=== PATIENT | male | born 1965 | race Caucasian/White ===

== ENCOUNTER 2021-08-23 19:34 | Inpatient (IN) | payer OTHER, BC ==
[~2021-08-23 19:34] MED LIST: Iopamidol-370 76% 500 ML 1 ML ONE
[2021-08-23 19:50] LABS: #Basophils 0.1 thou/uL (0.0-0.2); #Eosinphils 0.1 thou/uL (0.0-0.7); #Lymphocytes 1.6 thou/uL (1.20-3.40); #Monocytes 0.7 thou/uL (0.11-0.59); #Neutrophils 8.8 thou/uL (1.40-6.50); %Basophils 0.5 % (0.0-1.0); %Lymphocytes 14.5 % (21.0-51.0); %Neutrophils 77.9 % (42.0-75.0); Hemoglobin 17.2 g/dL (14.0-18.0); Mean Corpuscular HGB CONC 33.4 g/dL (32.0-36.0); Mean Corpuscular Hemoglobin 31.5 pg (27.0-31.0); Mean Corpuscular Volume 94.2 fL (78.0-98.0); Mean Platelet Volume 7.4 fL (7.4-10.4); Platelet Count 243 thou/uL (130-400); RBC Distribution Width 12.2 % (11.5-14.5); Red Blood Cell (RBC) Count 5.45 mill/uL (4.70-6.10); White Blood Cell (WBC) Count 11.3 thou/uL (4.8-10.8)
[2021-08-23] MEDS ORDERED: Ketorolac Tromethamine 30 MG/ML VIAL ONE ×2 (19:51→21:35)
[2021-08-23 20:11] LABS: ALT (SGPT) 30 U/L (8-55); AST (SGOT) 26 U/L (5-34); Albumin 4.7 g/dL (3.5-5.0); Alkaline Phosphatase 75 U/L (40-110); Anion Gap 16 mmol/L (10-20); BUN (Urea Nitrogen) 26 mg/dL (8.4-25.7); Bilirubin, Total 1.2 mg/dL (0.2-1.2); Calc. Creatinine Clearance 0 mL/min (70-130); Calcium 9.9 mg/dL (7.8-10.44); Carbon Dioxide 25 mmol/L (22-29); Chloride 99 mmol/L (98-107); Globulin 2.7 g/dL (2.4-3.5); Glucose 150 mg/dL (70-105); Potassium 3.8 mmol/L (3.5-5.1); Protein, Total 7.4 g/dL (6.0-8.3); Sodium 136 mmol/L (136-145)
[2021-08-23] MEDS ORDERED: Acetaminophen 325 MG TAB PO PRN (23:00)
[2021-08-23] MEDS ORDERED: Acetaminophen/Codeine 30-300mg Tablet PO PRN (23:00)
[2021-08-23] MEDS ORDERED: HYDROcodone/Acetaminophen 7.5/325 mg Tablet PO PRN (23:00)
[2021-08-23] MEDS ORDERED: Morphine 2 MG/ML VIAL SLOW IVP PRN (23:00)
[2021-08-23] MEDS ORDERED: traMADol HCl 50 MG TAB PO PRN ×2 (23:00→23:18)
[2021-08-23 23:13] LABS: #Eosinphils 0.1 thou/uL (0.0-0.7); #Lymphocytes 1.2 thou/uL (1.20-3.40); #Monocytes 0.8 thou/uL (0.11-0.59); #Neutrophils 12.8 thou/uL (1.40-6.50); %Basophils 0.3 % (0.0-1.0); %Eosinophils 0.4 % (0.0-10.0); %Lymphocytes 8.1 % (21.0-51.0); %Monocytes 5.1 % (0.0-10.0); %Neutrophils 86.2 % (42.0-75.0); Hemoglobin 16.9 g/dL (14.0-18.0); Mean Corpuscular HGB CONC 33.8 g/dL (32.0-36.0); Mean Corpuscular Hemoglobin 31.7 pg (27.0-31.0); Mean Corpuscular Volume 93.8 fL (78.0-98.0); Mean Platelet Volume 7.2 fL (7.4-10.4); Platelet Count 209 thou/uL (130-400); RBC Distribution Width 12.2 % (11.5-14.5); Red Blood Cell (RBC) Count 5.35 mill/uL (4.70-6.10); White Blood Cell (WBC) Count 14.8 thou/uL (4.8-10.8)
[2021-08-23] MEDS ORDERED: Dextrose 5% in Water 1,000 ML IV PRN (23:15)
[2021-08-23] MEDS ORDERED: Dextrose 50% Abboject 50 ML SYRINGE SLOW IVP PRN (23:15)
[2021-08-23 23:26] LABS: Prothrombin Time 13.3 sec (12.0-14.7)
[2021-08-23 23:27] LABS: PTT 26.4 sec (22.9-36.1)
[2021-08-23 23:30] LABS: Anion Gap 17 mmol/L (10-20); BUN (Urea Nitrogen) 26 mg/dL (8.4-25.7); Calc. Creatinine Clearance 0 mL/min (70-130); Calcium 9.5 mg/dL (7.8-10.44); Carbon Dioxide 23 mmol/L (22-29); Chloride 100 mmol/L (98-107); Glucose 141 mg/dL (70-105); Potassium 3.8 mmol/L (3.5-5.1); Sodium 136 mmol/L (136-145)
[2021-08-23] MEDS ORDERED: Acetaminophen 325 MG TAB PO SCH (23:30)
[2021-08-24 00:41] VITALS: BMI 35.1
[2021-08-24] MEDS ORDERED: Dextrose 5% in Water 1,000 ML IV PRN (00:45)
[2021-08-24] MEDS ORDERED: Dextrose 50% Abboject 50 ML SYRINGE SLOW IVP PRN (00:45)
[2021-08-24] MEDS ORDERED: HumaLOG 300 UNITS/3 ML VIAL SC PRN (00:45)
[2021-08-24] MEDS: traMADol HCl 50 MG TAB PO SCH ×5 (01:02→23:56)
[2021-08-24] MEDS: Ibuprofen 200 MG TAB PO SCH ×3 (01:02→11:49)
[2021-08-24] MEDS: Morphine 2 MG/ML VIAL SLOW IVP PRN ×4 (01:03→19:18)
[2021-08-24] MEDS: Acetaminophen 500 MG TAB PO SCH ×5 (01:03→23:55)
[2021-08-24] MEDS: Lactated Ringer's 1,000 ML IV SCH ×2 (01:12→10:04)
[2021-08-24 05:39] LABS: #Lymphocytes 1.4 thou/uL (1.20-3.40); #Monocytes 0.7 thou/uL (0.11-0.59); #Neutrophils 7.7 thou/uL (1.40-6.50); %Basophils 0.4 % (0.0-1.0); %Eosinophils 0.2 % (0.0-10.0); %Monocytes 7.2 % (0.0-10.0); %Neutrophils 78.2 % (42.0-75.0); Hemoglobin 15.7 g/dL (14.0-18.0); Mean Corpuscular HGB CONC 34.2 g/dL (32.0-36.0); Mean Corpuscular Hemoglobin 32.2 pg (27.0-31.0); Mean Platelet Volume 7.5 fL (7.4-10.4); Platelet Count 196 thou/uL (130-400); RBC Distribution Width 12.1 % (11.5-14.5); Red Blood Cell (RBC) Count 4.89 mill/uL (4.70-6.10); White Blood Cell (WBC) Count 9.8 thou/uL (4.8-10.8)
[2021-08-24 06:05] LABS: Anion Gap 14 mmol/L (10-20); BUN (Urea Nitrogen) 26 mg/dL (8.4-25.7); Calc. Creatinine Clearance 175 mL/min (70-130); Calcium 9.6 mg/dL (7.8-10.44); Carbon Dioxide 28 mmol/L (22-29); Chloride 100 mmol/L (98-107); Glucose 113 mg/dL (70-105); Magnesium 2.1 mg/dL (1.6-2.6); Phosphorus 4.4 mg/dL (2.3-4.7); Potassium 3.8 mmol/L (3.5-5.1); Sodium 138 mmol/L (136-145)
[2021-08-24] MEDS: Famotidine 20 MG TAB PO SCH ×2 (07:45→19:18)
[2021-08-24] MEDS ORDERED: Thrombin 5000 UNITS/5 ML VIAL ONE (11:13)
[2021-08-24] MEDS ORDERED: fentaNYL Citrate/PF 100 MCG/2 ML SYRINGE ONE (11:20)
[2021-08-24] MEDS ORDERED: Midazolam HCl 2 mg/2 ml Vial ONE (11:20)
[2021-08-24] MEDS ORDERED: ceFAZolin (BATCH) 2 GM/100 ML BAG ONE ×2 (11:24)
[2021-08-24] MEDS ORDERED: Glycopyrrolate 0.2 MG/ML 5 ML SYRINGE ONE (11:32)
[2021-08-24] MEDS ORDERED: PHENYLEPHRINE-NS 100 MCG/ML 10 ML SYRINGE ONE (11:32)
[2021-08-24] MEDS ORDERED: diphenhydrAMINE 50 MG/ML VIAL ONE (11:32)
[2021-08-24] MEDS ORDERED: Rocuronium Bromide 10 MG/ML (10ML VIAL) ONE (11:32)
[2021-08-24] MEDS ORDERED: Lidocaine 1% PF 5 ML VIAL ONE (11:32)
[2021-08-24] MEDS ORDERED: Ondansetron PF 4 MG/2 ML Vial ONE (11:32)
[2021-08-24] MEDS ORDERED: Ketorolac Tromethamine 30 MG/ML VIAL ONE (11:32)
[2021-08-24] MEDS ORDERED: PROPOFOL 200 MG/20 ML VIAL ONE (11:32)
[2021-08-24] MEDS ORDERED: Rocuronium Bromide 50 MG/5 ML VIAL ONE ×2 (12:44→13:56)
[2021-08-24] MEDS ORDERED: HYDROmorphone 2 MG/ML VIAL ONE (14:46)
[2021-08-24] MEDS ORDERED: HYDROcodone/Acetaminophen 7.5/325 mg Tablet PO PRN (15:26)
[2021-08-24] MEDS ORDERED: Promethazine HCl 25 MG/ML VIAL IVPB PRN (15:31)
[2021-08-24] MEDS ORDERED: Ondansetron HCl/PF 4 MG/2 ML Vial IVP PRN (15:31)
[2021-08-24] MEDS ORDERED: Promethazine HCl 25 MG/ML VIAL IM PRN (15:31)
[2021-08-24] MEDS ORDERED: HYDROmorphone 2 MG/ML VIAL SLOW IVP PRN (15:31)
[2021-08-24 15:50] LABS: SARS-CoV-2 PCR by NAA Not Detected (NotDetected)
[2021-08-24] MEDS ORDERED: HYDROmorphone 0.5 MG/0.5 ML SYRINGE ONE ×2 (16:00→16:17)
[2021-08-24] MEDS: tiZANidine HCl 4 MG TAB PO PRN (17:11)
[2021-08-24] MEDS: ceFAZolin (BATCH) 2 GM in Premix Bag 1 BAG IVPB SCH (19:18)
[2021-08-24] MEDS: Acetaminophen/Codeine 30-300mg Tablet PO PRN (20:38)
[2021-08-25] MEDS: Morphine 2 MG/ML VIAL SLOW IVP PRN ×8 (00:26→19:48)
[2021-08-25] MEDS: ceFAZolin (BATCH) 2 GM in Premix Bag 1 BAG IVPB SCH ×3 (04:00→19:50)
[2021-08-25] MEDS: tiZANidine HCl 4 MG TAB PO PRN ×2 (04:02→18:47)
[2021-08-25] MEDS: Acetaminophen 500 MG TAB PO SCH ×3 (05:47→17:55)
[2021-08-25] MEDS: traMADol HCl 50 MG TAB PO SCH ×3 (05:48→17:54)
[2021-08-25] MEDS: Acetaminophen/Codeine 30-300mg Tablet PO PRN ×2 (06:31→15:57)
[2021-08-25 06:50] LABS: #Eosinphils 0.1 thou/uL (0.0-0.7); #Monocytes 0.7 thou/uL (0.11-0.59); #Neutrophils 8.6 thou/uL (1.40-6.50); %Basophils 0.3 % (0.0-1.0); %Eosinophils 0.6 % (0.0-10.0); %Lymphocytes 9.5 % (21.0-51.0); %Monocytes 6.6 % (0.0-10.0); Hemoglobin 13.8 g/dL (14.0-18.0); Mean Corpuscular HGB CONC 33.7 g/dL (32.0-36.0); Mean Corpuscular Hemoglobin 32.4 pg (27.0-31.0); Mean Corpuscular Volume 96.1 fL (78.0-98.0); Mean Platelet Volume 7.6 fL (7.4-10.4); Platelet Count 167 thou/uL (130-400); RBC Distribution Width 12.1 % (11.5-14.5); Red Blood Cell (RBC) Count 4.26 mill/uL (4.70-6.10); White Blood Cell (WBC) Count 10.3 thou/uL (4.8-10.8)
[2021-08-25 07:06] LABS: Phosphorus 2.8 mg/dL (2.3-4.7)
[2021-08-25 07:07] LABS: Anion Gap 13 mmol/L (10-20); BUN (Urea Nitrogen) 17 mg/dL (8.4-25.7); Calc. Creatinine Clearance 188 mL/min (70-130); Calcium 8.2 mg/dL (7.8-10.44); Carbon Dioxide 26 mmol/L (22-29); Chloride 101 mmol/L (98-107); Glucose 139 mg/dL (70-105); Magnesium 1.8 mg/dL (1.6-2.6); Potassium 4.3 mmol/L (3.5-5.1); Sodium 136 mmol/L (136-145)
[2021-08-25] MEDS: Famotidine 20 MG TAB PO SCH ×2 (07:48→21:47)
[2021-08-25] MEDS: traMADol HCl 50 MG TAB PO PRN ×2 (08:53→15:59)
[2021-08-25] MEDS ORDERED: Amlodipine 5 MG TAB PO SCH (20:30)
[2021-08-25] MEDS ORDERED: Morphine 2 MG/ML VIAL SLOW IVP PRN (21:24)
[2021-08-25] MEDS: Ondansetron ODT 4 MG TAB PO PRN (21:45)
[2021-08-25] MEDS: oxyCODONE 5 MG TAB PO SCH (21:46)
[2021-08-25] MEDS ORDERED: Enoxaparin Sodium 40 MG/0.4 ML SYRINGE SC SCH (22:00)
[2021-08-26] MEDS: traMADol HCl 50 MG TAB PO SCH ×2 (00:08→06:31)
[2021-08-26] MEDS: Acetaminophen 500 MG TAB PO SCH ×2 (00:21→08:02)
[2021-08-26] MEDS: oxyCODONE 5 MG TAB PO SCH ×2 (01:12→05:00)
[2021-08-26] MEDS: ceFAZolin (BATCH) 2 GM in Premix Bag 1 BAG IVPB SCH ×3 (04:17→21:59)
[2021-08-26] MEDS: Levothyroxine Sodium 25 MCG TAB PO SCH (06:29)
[2021-08-26] MEDS: Levothyroxine Sodium 100 MCG TAB PO SCH (06:30)
[2021-08-26] MEDS ORDERED: traMADol HCl 50 MG TAB PO PRN (07:44)
[2021-08-26] MEDS ORDERED: traMADol HCl 50 MG TAB PO SCH (07:45)
[2021-08-26] MEDS: Losartan 25 MG TAB PO SCH (08:21)
[2021-08-26] MEDS: Amlodipine 5 MG TAB PO SCH (08:21)
[2021-08-26] MEDS: Atorvastatin Calcium 20 MG TAB PO SCH ×2 (08:21→09:52)
[2021-08-26] MEDS: Pregabalin 50 MG CAP PO SCH ×2 (08:21→22:00)
[2021-08-26] MEDS: Triamterene/Hydrochlorothiazide 37.5 mg/25 mg Tablet PO SCH (08:21)
[2021-08-26] MEDS: Enoxaparin Sodium 40 MG/0.4 ML SYRINGE SC SCH (08:22)
[2021-08-26] MEDS: Famotidine 20 MG TAB PO SCH ×2 (08:22→22:00)
[2021-08-26] MEDS: tiZANidine HCl 4 MG TAB PO PRN (08:22)
[2021-08-26] MEDS ORDERED: oxyCODONE 5 MG TAB PO SCH (09:30)
[2021-08-26] MEDS ORDERED: Acetaminophen 500 MG TAB PO SCH (09:30)
[2021-08-26] MEDS: HYDROcodone/Acetaminophen 10/325 mg Tablet PO SCH ×4 (09:42→23:17)
[2021-08-26] MEDS: Ondansetron ODT 4 MG TAB PO PRN ×3 (09:50→19:57)
[2021-08-26] MEDS ORDERED: Promethazine HCl 25 MG/ML VIAL IM PRN (11:22)
[2021-08-26] MEDS: tiZANidine HCl 4 MG TAB PO SCH ×2 (11:47→19:17)
[2021-08-26] MEDS: Ketorolac Tromethamine 30 MG/ML VIAL IVP SCH ×3 (11:48→23:16)
[2021-08-26] MEDS ORDERED: Acetaminophen/Codeine 30-300mg Tablet PO SCH (12:00)
[2021-08-26] MEDS ORDERED: Ketorolac Tromethamine 30 MG/ML VIAL IVP SCH (12:00)
[2021-08-26] MEDS ORDERED: Scopolamine 1.5 mg/72 hour Patch TD SCH (12:00)
[2021-08-26] MEDS ORDERED: Polyethylene Glycol 3350 17 GM Packet PO SCH (14:45)
[2021-08-26 20:13] LABS: Bacteria/HPF None Seen HPF (None Seen); Bilirubin Negative (Negative); Blood, Urine Negative (Negative); Clarity Clear (Clear); Glucose, Urine (Dipstick) 500 mg/dL (Negative); Ketone, Urine Greater than 150 mg/dL (Negative); Leukocyte Negative Leu/uL (Negative); Mucous/LPF Rare LPF (<2+); Nitrite Negative (Negative); Protein, Urine (Dipstick) 30 mg/dL (Neg-Trace); RBC/HPF 0-3 HPF (0-3); Specific Gravity, Urine 1.031 (1.002-1.036); Squamous Epithelial None Seen HPF (0-3); Urobilinogen Normal mg/dL (Less than 2); WBC/HPF 0-3 HPF (0-3)
[2021-08-26 20:15] LABS: Urine Culture Reflex No No
[2021-08-26] MEDS ORDERED: Melatonin 3 MG TAB PO SCH (21:00)
[2021-08-26] MEDS: Senokot S 8.6-50 MG TAB PO SCH (22:00)
[2021-08-27] MEDS: tiZANidine HCl 4 MG TAB PO SCH ×2 (03:00→11:28)
[2021-08-27] MEDS: HYDROcodone/Acetaminophen 10/325 mg Tablet PO SCH ×4 (03:00→16:45)
[2021-08-27] MEDS: ceFAZolin (BATCH) 2 GM in Premix Bag 1 BAG IVPB SCH ×2 (03:22→11:58)
[2021-08-27] MEDS: Levothyroxine Sodium 25 MCG TAB PO SCH (06:16)
[2021-08-27] MEDS: Levothyroxine Sodium 100 MCG TAB PO SCH (06:17)
[2021-08-27] MEDS: Ketorolac Tromethamine 30 MG/ML VIAL IVP SCH ×2 (06:36→11:59)
[2021-08-27] MEDS ORDERED: Lactated Ringer's 1,000 ML IV SCH (09:00)
[2021-08-27] MEDS ORDERED: Polyethylene Glycol 3350 17 GM Packet PO SCH (09:00)
[2021-08-27] MEDS: Pregabalin 50 MG CAP PO SCH (10:03)
[2021-08-27] MEDS: Ondansetron ODT 4 MG TAB PO PRN (10:03)
[2021-08-27] MEDS: Atorvastatin Calcium 20 MG TAB PO SCH (10:03)
[2021-08-27] MEDS: Famotidine 20 MG TAB PO SCH (10:04)
[2021-08-27] MEDS: Enoxaparin Sodium 40 MG/0.4 ML SYRINGE SC SCH (11:05)
[2021-08-27] MEDS: Senokot S 8.6-50 MG TAB PO SCH (12:24)
[2021-08-27 12:26] VITALS: BP 132/88; TEMP 97.9
[2021-08-27] MEDS: Triamterene/Hydrochlorothiazide 37.5 mg/25 mg Tablet PO SCH (12:34)
[2021-08-27] MEDS: Losartan 25 MG TAB PO SCH (12:34)
[2021-08-27] MEDS: Amlodipine 5 MG TAB PO SCH (12:34)
[2021-08-27] MEDS ORDERED: Ibuprofen 200 MG TAB PO SCH (15:00)
== END 2021-08-27 17:19 | DRG 460 ==
LOC: ERS 19:34 → SURG A 23:16
PROVIDERS: ADMIT Specialist; ATTEND Specialist
PROC: 0RG7071 Fusion of 2 to 7 Thoracic Vertebral Joints with Autologous Tissue Substitute, Posterior Approach, Posterior Column, Open Approach (ICD-10-PCS; principal; 2021-08-24)
PROC: 0PS404Z Reposition Thoracic Vertebra with Internal Fixation Device, Open Approach (ICD-10-PCS; 2021-08-24)
DX: S22.079A Unspecified fracture of T9-T10 vertebra, initial encounter for closed fracture (principal); S22.089A Unspecified fracture of T11-T12 vertebra, initial encounter for closed fracture; M48.14 Ankylosing hyperostosis [Forestier], thoracic region; E11.9 Type 2 diabetes mellitus without complications; E03.9 Hypothyroidism, unspecified; I10 Essential (primary) hypertension; G47.33 Obstructive sleep apnea (adult) (pediatric); Z20.822 Contact with and (suspected) exposure to COVID-19; V29.40XA Motorcycle driver injured in collision with unspecified motor vehicles in traffic accident, initial encounter; Z99.81 Dependence on supplemental oxygen; Z98.52 Vasectomy status; Z79.890 Hormone replacement therapy; Z79.84 Long term (current) use of oral hypoglycemic drugs; Z79.899 Other long term (current) drug therapy
CPT/HCPCS: 36415; 36416; 70450; 71260; 72125; 72146; 74177; 76000; 80048; 80053; 81001; 83735; 84100; 85025; 85610; 85730; 93005; 93970; 94660; 96374; 96376; C1713; C1768; G0390; J0690; J1170; J1200; J1650; J1815; J1885; J2250; J2270; J2405; J2550; J2704; J3370; J3475; J3490; J7120; Q0162; Q9967; U0003; U0005

== ENCOUNTER 2021-10-15 08:55 | Day surgery (SDC) | payer BC ==
[2021-10-14 11:09] VITALS: BMI 33.1
[2021-10-15 10:20] LABS: #Eosinphils 0.1 thou/uL (0.0-0.7); #Lymphocytes 1.4 thou/uL (1.20-3.40); #Monocytes 0.5 thou/uL (0.11-0.59); #Neutrophils 4.1 thou/uL (1.40-6.50); %Basophils 0.6 % (0.0-1.0); %Eosinophils 1.9 % (0.0-10.0); %Lymphocytes 23.3 % (21.0-51.0); %Monocytes 7.9 % (0.0-10.0); %Neutrophils 66.3 % (42.0-75.0); Hemoglobin 15.4 g/dL (14.0-18.0); Mean Corpuscular HGB CONC 32.8 g/dL (32.0-36.0); Mean Corpuscular Hemoglobin 31.2 pg (27.0-31.0); Mean Corpuscular Volume 94.9 fL (78.0-98.0); Platelet Count 222 thou/uL (130-400); Red Blood Cell (RBC) Count 4.95 mill/uL (4.70-6.10); White Blood Cell (WBC) Count 6.2 thou/uL (4.8-10.8)
[2021-10-15 10:35] LABS: INR-International Normal Ratio 0.9; PTT 27.2 sec (22.9-36.1); Prothrombin Time 12.3 sec (12.0-14.7)
[2021-10-15 10:39] LABS: Anion Gap 13 mmol/L (10-20); BUN (Urea Nitrogen) 16 mg/dL (8.4-25.7); CRP (Inflammatory) Less than 0.50 mg/dL (= or < 0.5); Calc. Creatinine Clearance 195 mL/min (70-130); Calcium 9.7 mg/dL (7.8-10.44); Carbon Dioxide 29 mmol/L (22-29); Chloride 100 mmol/L (98-107); Glucose 138 mg/dL (70-105); Sodium 138 mmol/L (136-145)
[2021-10-15 11:16] LABS: SARS-CoV-2 NAA Rapid Test Not Detected (NotDetected)
[2021-10-15] MEDS ORDERED: Thrombin 5000 UNITS/5 ML VIAL ONE (12:20)
[2021-10-15] MEDS ORDERED: Sodium Chloride 0.9% 100 ML ONE ×2 (12:34→15:16)
[2021-10-15] MEDS ORDERED: CEFAZOLIN 2 GM VIAL ONE ×2 (12:34→15:16)
[2021-10-15] MEDS ORDERED: fentaNYL Citrate/PF 100 MCG/2 ML SYRINGE ONE (12:38)
[2021-10-15] MEDS ORDERED: Ketamine 50 MG/ML (10ML VIAL) ONE (12:43)
[2021-10-15] MEDS ORDERED: Acetaminophen/Codeine 30-300mg Tablet PO PRN (13:18)
[2021-10-15] MEDS ORDERED: Acetaminophen 325 MG TAB PO PRN (13:18)
[2021-10-15] MEDS ORDERED: traMADol HCl 50 MG TAB PO PRN (13:18)
[2021-10-15] MEDS ORDERED: HYDROcodone/Acetaminophen 10/325 mg Tablet PO PRN (13:20)
[2021-10-15] MEDS ORDERED: tiZANidine HCl 4 MG TAB PO PRN (13:20)
[2021-10-15] MEDS ORDERED: CEFAZOLIN 2 GM in Sodium Chloride 0.9% 100 ML IVPB SCH ×2 (14:00→20:00)
[2021-10-15] MEDS ORDERED: Fentanyl 100 MCG/2 ML VIAL ONE (14:28)
[2021-10-15] MEDS ORDERED: metFORMIN 500 MG TAB PO SCH (17:00)
[2021-10-15] MEDS ORDERED: Melatonin 3 MG TAB PO SCH (21:00)
[2021-10-15] MEDS ORDERED: Pregabalin 50 MG CAP PO SCH (21:00)
[2021-10-16] MEDS ORDERED: Levothyroxine Sodium 25 MCG TAB PO SCH (06:00)
[2021-10-16] MEDS ORDERED: Levothyroxine Sodium 100 MCG TAB PO SCH (06:00)
[2021-10-16] MEDS ORDERED: Amlodipine 5 MG TAB PO SCH (09:00)
[2021-10-16] MEDS ORDERED: Atorvastatin Calcium 20 MG TAB PO SCH (09:00)
[2021-10-16] MEDS ORDERED: Polyethylene Glycol 3350 17 GM Packet PO SCH (09:00)
[2021-10-16] MEDS ORDERED: Triamterene/Hydrochlorothiazide 37.5 mg/25 mg Tablet PO SCH (09:00)
[2021-10-16] MEDS ORDERED: Losartan 25 MG TAB PO SCH (09:00)
[2021-10-16] MEDS ORDERED: Empagliflozin 10 MG TAB PO SCH (09:00)
== END 2021-10-15 16:10 | disposition home or self-care (01) ==
LOC: SDC 08:55
PROVIDERS: ATTEND Surgery
PROC: 0JQ70ZZ Repair Back Subcutaneous Tissue and Fascia, Open Approach (ICD-10-PCS; principal; 2021-10-15)
DX: T81.32XA Disruption of internal operation (surgical) wound, not elsewhere classified, initial encounter (principal)
CPT/HCPCS: 76000; 80048; 85025; 85610; 85652; 85730; 86140; J0690; J3010; J3370; J3490; U0002